=== PATIENT | female | born 1975 | race Caucasian/White ===

== ENCOUNTER 2025-05-19 18:38 | Emergency (ER) | payer MEDICAID, SELFPAY ==
[2025-05-19 18:41] VITALS: BMI 31.2
[2025-05-19 19:34] VITALS: BP 109/77; PULSE 101; RESP 16; TEMP 37.1; O2SAT 97
--- NOTE | 2025-05-19 20:01 | EDNOTE_ITS ---
ED Weakness RME/HPI General Chief complaint: General Adult/Misc Complain Stated complaint: I THINK I'M DEHYDRATED, PAIN TO EXTREMITIES Time Seen by Provider: 05/19/25 20:04 Arrival date/time: 05/19/25 18:38 RME / HPI RME / HPI Narrative: See [facility] for Dr. Henderson's HPI documentation. Related Data Previous Rx's ?Medication ?Instructions ?Recorded ibuprofen 800 mg tablet 800 mg PO TID PRN pain #30 t abs 06/24/22 Allergies Allergy/AdvReac Type Severity Reaction Status Date / Time cephalexin Allergy Severe SOB/RASH Verified 07/17/18 18:17 sumatriptan Allergy Severe DIFFICULTY Verified 07/17/18 18:17 BREATHING adhesive tape Allergy Unknown Hives Verified 06/24/22 17:55 Review of Systems Review of Systems Systems Reviewed: All systems reviewed, normal except as documented Past Medical History Past Medical History CARDIAC: Positive Hypercholesterolemia and Hypertension; Negative Cardiac Disorders or Congestive Heart Failure RESPIRATORY: Positive Asthma; Negative Chronic Obstructive Pulmonary Disease (COPD) GENITOURINARY: Negative Renal Disease ENDOCRINE: Positive Diabetes Mellitus Type 2; Negative Diabetes Mellitus Type 1 HEMATOLOGIC: Negative Sickle Cell Disease OTHER HISTORY: Positive Blood Transfusions Surgical History SURGICAL: Positive Tonsillectomy, Mastectomy (left), Hysterectomy and Section Social History SMOKING STATUS: Current every day smoker ED Exam Narrative Physical exam: See [facility] for Dr. Henderson's physical exam documentation. Course Quality Measures none Orders Category Date Time Status Saline [Insert IV] NOW Care 05/19/25 20:05 Completed BMP [Basic Metabolic Panel] Stat Lab 05/19/25 20:25 Completed CBC Stat Lab 05/19/25 20:25 Completed Magnesium Stat Lab 05/19/25 20:25 Completed TSH [Thyroid Stimulating Hormone] Stat Lab 05/19/25 20:25 Completed HYDROmorphone INJ [Dilaudid Inj] Med 05/19/25 20:05 Discontinued 2 mg IVP X1 ONE HYDROmorphone INJ [Dilaudid Inj] Med 05/19/25 21:48 Discontinued 2 mg IVP X1 ONE Ketorolac Inj [Toradol Inj] Med 05/19/25 21:48 Discontinued 30 mg IVP X1 ONE MethylPREDNISolone.* [SoluMEDROL Inj] Med 05/19/25 20:05 Discontinued 125 mg IVP X1 ONE Ondansetron Inj [Zofran Inj] Med 05/19/25 20:05 Discontinued 4 mg IVP X1 ONE Sodium Chloride 0.9% 1000 ml [Ns] 1,000 ml Med 05/19/25 20:05 Discontinued IV 999 mls/hr Vital Signs Vital signs: Vital Signs Temperature 98.7 F 05/19/25 19:34 Pulse Rate 101 H 05/19/25 19:34 Respiratory Rate 16 05/19/25 19:34 Blood Pressure 109/77 05/19/25 19:34 Pulse Oximetry (%) 97 05/19/25 19:34 Oxygen Delivery Method Room Air 05/19/25 19:34 Weakness MDM Narrative MDM Narrative:: This section includes all my notes and documentations, including HPI, PE, and ED course. 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 Reports having occasional flareups of severe pain since the diagnosis. No fever or chills. No other complaints. ROS: All negative except as documented in HPI. Physical Exam: General:? Alert and oriented.? No acute distress.? Eyes:? Conjunctivae and lids clear.? EOMI.? PERRL. ENT:? No signs of head trauma. Neck:? Supple.? No tenderness. Heart:? RRR. Lungs:? No respiratory distress.? Good air movement.? No rhonchi, wheezing, rales.? Chest:? No tenderness. Abdomen:? Soft and nontender.? Normal bowel sounds.? No distension.? No rebound or guarding.? Back:? No tenderness.? Skin:? Warm and dry.? Neuro:? Alert and oriented X 3.? Cranial Nerves II-XII grossly intact.? No peripheral motor deficits. Musculoskeletal:? All major joints and bones are not tender with no limited ROM. I reviewed all diagnostic test results. Blood tests are unremarkable. At this point, diagnoses include: GBS pain flareup Treatment here included: Solumedrol 125 mg IV Zofran 4 mg IV IV fluid Dilaudid 2 mg IV X 2 Toradol 30 mg IV Significant improvement noted. Recommended supportive care. Based on my best medical judgment, made decision no further evaluation or treatment indicated at this time. Patient understands and agrees to the discharge instructions customized and printed, see below. Discharge Instructions from Dr. Henderson printed for you: 1. We are sorry for your recent diagnosis of 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 (GBS). 2. Continue current care with your private doctors. 3. Seek immediate medical care with worsening or with any concerns. Ming Henderson MD Patient data External records reviewed:: [facility] previous records (Per chart review, patient was seen here on 06/24/22 for bronchitis.) Clinical information provided by:: patient Social determinants that could affect healthcare access:: none Patient has the following chronic illnesses:: Guillan-Palmyra, DM, HTN, HLD How is presenting disease/condition affected by chronic disease/condition?: caused by Evaluation data The following diagnostics were reviewed and interpreted by me:: lab results Lab and/or radiology exams considered but not ordered:: none Interpretation Summary: I reviewed all diagnostic test results. Blood tests are unremarkable. Medications / Prescriptions Medications or Prescriptions considered but not ordered:: none Medication administrations:: Medication Administration History Discontinued Medications Hydromorphone HCl (Hydromorphone Inj 2 Mg/Ml Vial) 2 mg IVP X1 ONE Stop: 05/19/25 20:06 Last Admin: 05/19/25 21:20 Dose: 2 mg Documented By: BD Hydromorphone HCl (Hydromorphone Inj 2 Mg/Ml Vial) 2 mg IVP X1 ONE Stop: 05/19/25 21:49 Last Admin: 05/19/25 22:10 Dose: 2 mg Documented By: BD Sodium Chloride (Ns) 1,000 mls @ 999 mls/hr IV .Q1H1M ONE Stop: 05/19/25 21:05 Last Infusion: 05/19/25 21:56 Dose: Infused Documented By: Admin: 05/19/25 21:21 Dose: 999 mls/hr Documented By: BD Ketorolac Tromethamine (Ketorolac Inj 30 Mg/Ml Vial) 30 mg IVP X1 ONE Stop: 05/19/25 21:49 Last Admin: 05/19/25 22:09 Dose: 30 mg Documented By: BD Methylprednisolone Sodium Succinate (Methylprednisolone Sod Succ 62.5 Mg/Ml 2ml Vial) 125 mg IVP X1 ONE Stop: 05/19/25 20:06 Last Admin: 05/19/25 21:21 Dose: 125 mg Documented By: BD Ondansetron HCl (Ondansetron Inj 2 Mg/Ml Inj 2 Ml) 4 mg IVP X1 ONE; Protocol Stop: 05/19/25 20:06 Last Admin: 05/19/25 21:21 Dose: 4 mg Documented By: BD Treatment here included: Solumedrol 125 mg IV Zofran 4 mg IV IV fluid Dilaudid 2 mg IV X 2 Toradol 30 mg IV Consultations Consultation(s) initiated? (list below): No Diagnosis Weakness Differential Diagnosis: anemia, hypoglycemia, dehydration and other (GBS exacerbation) Most likely diagnosis given after review of the tests above:: GBS exacerbation Admission Indicated Admission indicated?: not indicated Explain why admission is indicated or not indicated:: With significant improvement and no condition needing emergent intervention, there was no indication for admission. Admission Request Was there a request for admission?: No Disposition Plan Disposition Plan: Discharge Discharge Attestation Discharge Attestation: The patient and all family members were given an opportunity to ask questions and understood the discharge instructions. Discharge instructions specifically effects, indications for sooner follow up or return to the emergency department, and the expected course of current diagnosis. Patient condition: Stable Discharge Plan Plan Patient Disposition: HOME (Self Care) Prescriptions/Referrals Prescriptions/Med Rec: No Action ibuprofen 800 mg tablet 800 mg PO TID PRN (Reason: pain) Qty: 30 0RF Referrals: Jessica Ramirez DO [Primary Care Provider] - In 1 week Problem List Clinical Impression: Pain Patient/Caregiver Discharge Instructions Discharge Activity: activity as tolerated Education Materials: ED Pain, Acute, Uncertain Cause Additional Instructions: Discharge Instructions from Dr. Henderson printed for you: 1. We are sorry for your recent diagnosis of 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 (GBS). 2. Continue current care with your private doctors. 3. Seek immediate medical care with worsening or with any concerns. Print Language: Haitian Stand Alone Forms: Priscilla Award Info., Patient Portal Info Letter
--- NOTE | 2025-05-19 20:42 | PC.NURSE ---
NO ANSWER AT ER LOBBY OR OUTSIDE ER.
[2025-05-19 20:48] LABS: Basophils # (Auto) 0.1 Thou/mm3 (0.0-0.2); Basophils % (Auto) 0 % (0-2.5); Eosinophils # (Auto) 0.2 Thou/mm3 (0.0-0.5); Eosinophils % (Auto) 2 % (0-10); Hematocrit 38.7 % (36.0-46.0); Hemoglobin 12.1 g/dL (12.0-16.0); Immature Granulocytes Auto 0.03 Thou/mm3 (0.00-0.00); Lymphocytes # (Auto) 4.6 Thou/mm3 (1.0-4.8); Lymphocytes % (Auto) 39 % (10-50); Mean Corpuscular HGB Conc 31.3 g/dl (31.0-37.0); Mean Corpuscular Hemoglobin 30.0 pg (25.0-35.0); Mean Corpuscular Volume 96 fL (80-100); Monocytes # (Auto) 0.6 Thou/mm3 (0.0-0.8); Monocytes % (Auto) 5 % (0-12); Neutrophils # (Auto) 6.3 Thou/mm3 (1.8-7.7); Neutrophils % (Auto) 53 % (37-80); Nucleated Red Blood Cell # 0.00 Thou/mm3 (0.00-0.00); Nucleated Red Blood Cell % 0 /100 WBC (0); Platelet Count 366 Thou/mm3 (140-440); RDW Standard Deviation 53.4 fL (36.4-46.3); Red Blood Count 4.04 Miln/mm3 (4.00-5.20); White Blood Count 11.9 Thou/mm3 (3.6-11.0)
[2025-05-19 21:11] LABS: Anion Gap 6 (7-16); BUN/Creatinine Ratio 10 Ratio (12-20); Blood Urea Nitrogen 6 mg/dL (9-23); Calcium 8.6 mg/dL (8.3-10.6); Carbon Dioxide 24.7 mMol/L (20.0-31.0); Chloride 110 mMol/L (98-107); Creatinine (Component) 0.6 mg/dL (0.6-1.3); Estimated Creatinine Clearance 119.2 mL/min (>60); Glucose 79 mg/dL (74-106); Magnesium 1.8 mg/dL (1.6-2.6); Osmolality,Calculated 277 (275-295); Potassium 3.6 mMol/L (3.4-5.1); Sodium 141 mMol/L (136-145); Thyroid Stimulating Hormone 0.82 uIU/mL (0.55-4.78); eGFR > 60 See Note
[2025-05-19 21:20] VITALS: BP 125/88; PULSE 82; RESP 16; TEMP 36.9; O2SAT 96
[2025-05-19] MEDS: HYDROmorphone INJ 2 MG/ML VIAL IVP ×2 (21:20→22:10)
[2025-05-19] MEDS: SODIUM CHLORIDE 0.9% 1000 ML 1,000 ML 999 ML IV (21:21)
[2025-05-19] MEDS: MethylPREDNISolone SOD SUCC 62.5 MG/ML 2ML VIAL 125 MG IVP (21:21)
[2025-05-19] MEDS: ONDANSETRON INJ 2 MG/ML INJ 2 ML 4 MG IVP (21:21)
[2025-05-19 22:00] VITALS: BP 126/84; PULSE 85; RESP 16; TEMP 36.9; O2SAT 96
[2025-05-19] MEDS: KETOROLAC INJ 30 MG/ML VIAL IVP (22:09)
== END 2025-05-19 22:26 | disposition home or self-care (01) ==
PROVIDERS: Emergency Provider Emergency Medicine; PCP Family Medicine
DX: M79.602 Pain in left arm (principal); M79.601 Pain in right arm; M79.605 Pain in left leg; M79.604 Pain in right leg; G61.0 Guillain-Barre syndrome; I10 Essential (primary) hypertension; E11.9 Type 2 diabetes mellitus without complications; E78.5 Hyperlipidemia, unspecified
CPT/HCPCS: 36415; 80048; 83735; 84443; 85025; 96361; 96374; 96375; 96376; 99283; J1171; J1885; J2405; J2919; J7030

== ENCOUNTER 2025-05-23 14:17 | Emergency (ER) | payer MEDICAID, SELFPAY ==
[2025-05-23 14:41] VITALS: BP 116/78; PULSE 95; RESP 20; TEMP 36.7; O2SAT 98; BMI 31.9
--- NOTE | 2025-05-23 14:44 | PD.EDRME ---
Rapid Medical Screening Exam RME Arrival date/time: 05/23/25 14:17 49-year-old female with history of Guillain-Barrow? presents to the emergency room with a chief complaint of lower extremity numbness as well as stabbing to her upper extremities and chest x 2 days I have greeted and performed a focused initial assessment of this patient. A comprehensive ED assessment and evaluation of the patient, analysis of all test results, and completion of the medical decision making process will be conducted by additional ED providers. Chief Complaint: Hand/Wrist Problems Time Seen by Provider: 05/23/25 14:37 Vital signs reviewed by provider: Yes
--- NOTE | 2025-05-23 14:46 | EKG_ITS ---
[facility] Test Date: 2025-05-23 Pat Name: MISBAH WHYTE Department: Room: - Gender: Female [employer] Installer: : 1975 Requested By: Reggie Issa Order Number: [id number] Reading MD: Reggie Issa Measurements Intervals [place] Rate: 89 P: 61 MS: 136 QRS: -16 QRSD: 121 T: 13 QT: 405 QTc: 493 Interpretive Statements SINUS RHYTHM WITH OCCASIONAL VENTRICULAR PREMATURE COMPLEXES RIGHT BUNDLE BRANCH BLOCK [120+ ms QRS DURATION, UPRIGHT V1, 40+ ms S IN I/aVL/V4/V5/V6] Compared to ECG 06/24/2022 18:48:39 Ventricular premature complex(es) now present /store/S0/[id number]/ecg/[id number].pdf
[2025-05-23 15:23] LABS: Basophils # (Auto) 0.1 Thou/mm3 (0.0-0.2); Basophils % (Auto) 0 % (0-2.5); Eosinophils # (Auto) 0.2 Thou/mm3 (0.0-0.5); Eosinophils % (Auto) 1 % (0-10); Hematocrit 40.1 % (36.0-46.0); Hemoglobin 13.3 g/dL (12.0-16.0); Immature Granulocytes Auto 0.06 Thou/mm3 (0.00-0.00); Lymphocytes # (Auto) 5.2 Thou/mm3 (1.0-4.8); Lymphocytes % (Auto) 36 % (10-50); Mean Corpuscular HGB Conc 33.2 g/dl (31.0-37.0); Mean Corpuscular Hemoglobin 30.8 pg (25.0-35.0); Mean Corpuscular Volume 93 fL (80-100); Monocytes # (Auto) 0.7 Thou/mm3 (0.0-0.8); Monocytes % (Auto) 5 % (0-12); Neutrophils # (Auto) 8.2 Thou/mm3 (1.8-7.7); Neutrophils % (Auto) 57 % (37-80); Nucleated Red Blood Cell # 0.00 Thou/mm3 (0.00-0.00); Nucleated Red Blood Cell % 0 /100 WBC (0); Platelet Count 401 Thou/mm3 (140-440); RDW Standard Deviation 53.2 fL (36.4-46.3); Red Blood Count 4.32 Miln/mm3 (4.00-5.20); White Blood Count 14.4 Thou/mm3 (3.6-11.0)
[2025-05-23 15:28] LABS: Collection Type, Urine Clean Catch
[2025-05-23 15:40] LABS: B-Type Natriuretic Peptide 86 pg/mL (0-100)
[2025-05-23 15:43] LABS: Alanine Aminotransferase < 7 U/L (10-49); Albumin, Serum 3.7 gm/dL (3.5-5.0); Albumin/Globulin Ratio 1.1 (1.2-2.2); Alkaline Phosphatase 139 U/L (46-116); Anion Gap 8 (7-16); Aspartate Amino Transferase 13 U/L (0-34); BUN/Creatinine Ratio 10 Ratio (12-20); Bilirubin,Total 0.2 mg/dL (0.3-1.2); Blood Urea Nitrogen 7 mg/dL (9-23); Calcium 9.0 mg/dL (8.3-10.6); Calcium (Corrected) 9.2 mg/dL (8.5-10.1); Carbon Dioxide 22.6 mMol/L (20.0-31.0); Chloride 108 mMol/L (98-107); Creatinine (Component) 0.7 mg/dL (0.6-1.3); Estimated Creatinine Clearance 103.3 mL/min (>60); Globulin 3.5 gm/dL (2.3-3.5); Glucose 129 mg/dL (74-106); Magnesium 1.8 mg/dL (1.6-2.6); Osmolality,Calculated 277 (275-295); Potassium 3.3 mMol/L (3.4-5.1); Sodium 139 mMol/L (136-145); Total Protein 7.2 gm/dL (5.7-8.2); Troponin I < 0.002 ng/mL (0.0-0.045); eGFR > 60 See Note
[2025-05-23 15:45] LABS: INR 1.1 (0.9-1.3); Partial Thromboplastin Time 29.6 Seconds (22.0-36.0); Prothrombin Time 11.9 Seconds (9.0-12.2)
[2025-05-23 15:46] LABS: Amphetamine/Methamp Scrn,U Negative (Negative); Barbiturate Screen,Urine Negative (Negative); Benzodiazepines Screen,Urine Negative (Negative); Benzoylecgonine Screen, Ur Negative (Negative); Fentanyl Screen,Urine Negative (Negative); Opiate Screen,Urine Positive (Negative); THC Screen,Urine Negative (Negative)
[2025-05-23 16:08] LABS: Bilirubin,Urine Negative (Negative); Blood,Urine Trace (Negative); Clarity,Urine Clear (Clear/Hazy); Color,Urine Lt-Yellow (Lt Yel-Yel); Culture Indicated,Urine Not Indicated; Glucose, Urine Negative (Negative); Ketones,Urine Negative (Negative); Leukocyte Esterase,Urine Negative (Negative); Nitrite,Urine Negative (Negative); PH,Urine 6.5 (5.0-7.0); Protein,Urine Negative (Neg - Trace); RBC,Urine < 1 /hpf (0-3); Specific Gravity,Urine 1.009 (1.001-1.035); Squamous Epithelial Cell,Urine 4 /hpf (0-5); Urobilinogen,Urine Negative mg/dL (0.0-1.0); WBC,Urine 1 /hpf (0-5)
--- NOTE | 2025-05-23 17:07 | EDNOTE_ITS ---
<Statement entered by Gertrudis Solano MD - 05/24/25 06:48> As co-signing physician, I was present and available for consult prn. I concur with the plan and care as documented by the midlevel provider. ED General RME/HPI General Chief complaint: Hand/Wrist Problems Stated complaint: PAIN IN HANDS/FEET D/T ROMO BARRE Time Seen by Provider: 05/23/25 14:37 Arrival date/time: 05/23/25 14:17 CC: Bilateral hand and foot pain HPI onset 24 hours ago. The patient states she has Guillain-Barrow? , was diagnosed in February at [facility] and is currently on Lyrica 103 times a day and [place] tens 3 times a day for the pain. Patient states she has an appointment with provider coming up on 28 May. Patient states her pain medication is not enough . Patient is requesting IV pain medications. Patient has no lower extremity weakness but has upper extremity weakness. She is awake alert oriented nontoxic-appearing not in any acute distress. RME / HPI RME / HPI narrative: 05/23/25 14:17 49-year-old female with history of Guillain-Barrow? presents to the emergency room with a chief complaint of lower extremity numbness as well as stabbing to her upper extremities and chest x 2 days I have greeted and performed a focused initial assessment of this patient. A comprehensive ED assessment and evaluation of the patient, analysis of all test results, and completion of the medical decision making process will be conducted by additional ED providers. Related Data Previous Rx's ?Medication ?Instructions ?Recorded ibuprofen 800 mg tablet 800 mg PO TID PRN pain #30 t abs 06/24/22 Allergies Allergy/AdvReac Type Severity Reaction Status Date / Time cephalexin Allergy Severe SOB/RASH Verified 05/23/25 14:20 sumatriptan Allergy Severe DIFFICULTY Verified 05/23/25 14:20 BREATHING adhesive tape Allergy Unknown Hives Verified 05/23/25 14:20 Review of Systems Review of Systems Narrative Review of Systems: GEN: No fever, no chills, no weight loss EYES: No discharge, no visual changes, no pain HEENT: No ear pain, no congestion, no sore throat PULM: No shortness of breath, no cough, no congestion CV: No chest pain, no dyspnea on exertion, no palpitations GI: No nausea, no vomiting, no diarrhea, no pain, no constipation : No frequency, no urgency, no dysuria MUSC/SKEL: No joint pain, no back pain, Hand and foot pain SKIN: No rash PSYCH: No hallucinations, no depression HEME/LYMPH: No easy bleeding or bruising tendencies NEURO: No weakness, no headache Past Medical History Past Medical History NEUROLOGIC: Positive Migraine CARDIAC: Positive Hypercholesterolemia and Hypertension; Negative Cardiac Disorders or Congestive Heart Failure RESPIRATORY: Positive Asthma and Pneumonia; Negative Chronic Obstructive Pulmonary Disease (COPD) GASTROINTESTINAL: Positive Gall Bladder Disease GENITOURINARY: Negative Renal Disease REPRODUCTIVE: Positive Previous Pregnancies MUSCULOSKELETAL: Positive Arthritis ENT: Positive Deafness (bilateral hearing aids) ENDOCRINE: Positive Diabetes Mellitus Type 2; Negative Diabetes Mellitus Type 1 HEMATOLOGIC: Negative Sickle Cell Disease PSYCHO/SOCIAL: Positive Depression and Anxiety OTHER HISTORY: Positive Blood Transfusions Surgical History SURGICAL: Positive Tonsillectomy, Mastectomy (left), Hysterectomy and Section Social History SMOKING STATUS: Current every day smoker ED Exam Narrative Physical exam: [General: Obese, in moderate discomfort but not in any acute distress Head normocephalic HEENT: Eyes pupils are PERRLA EOMs are intact mouth pink moist membranes uvula is midline swallow symmetrical phonation is normal. All other subsystems within acceptable limits Neck is supple nontender Chest equal chest rise nontender to palpation Respiratory: Clear to auscultation no wheezes crackles or rubs CV: Rate rhythm is regular no murmurs rubs or clicks Abdomen is soft nontender no masses positive bowel sounds all 4 quadrants Back: No CVA tenderness no spinous process tenderness from cervical spine thoracic and lumbar spine Skin: Intact no petechiae rash induration ulceration or crepitus Extremities: Hands: 2/5 strength in hands bilaterally. Decreased range of motion of the feet secondary to pain. Hands and feet are cool to touch but not cold cap refill less than 2 seconds. Neuro: Awake alert oriented x3 Glascow coma 15 no focal deficits] Course Course Course Narrative: I suspect this is mostly pain medication driven however patient's chart reviewed on May 08 patient was given 90 pills of 05/19/2025 narcotics as well as 90 pills of the Lyrica 100 mg. Patient adamant about getting as much pain medication as possible was seen here 2 days ago for the same complaint informed she was given Dilaudid Toradol and s teroids. I informed her that I can add Toradol to what already been giving her but that she needs to continue on her regular pain medication and follow-up with her primary care doctor. Quality Measures none Orders Category Date Time Status EKG (ED ONLY) *Do not use* NOW Care 05/23/25 14:46 Completed Saline [Insert IV] NOW Care 05/23/25 17:10 Active EKG (ED Only) Stat Exams 05/23/25 14:46 Draft B-Type Natriuretic Peptide Stat Lab 05/23/25 15:06 Completed CBC Stat Lab 05/23/25 15:06 Completed Comprehensive Metabolic Panel Stat Lab 05/23/25 15:06 Completed Drug Screen,Urine Stat Lab 05/23/25 15:23 Completed Magnesium Stat Lab 05/23/25 15:06 Completed Partial Thromboplastin Time Stat Lab 05/23/25 15:06 Completed Prothrombin Time with INR Stat Lab 05/23/25 15:06 Completed Troponin I Stat Lab 05/23/25 15:06 Completed Urinalysis, C/S if Indicated Stat Lab 05/23/25 15:23 Completed Morphine* Inj Med 05/23/25 17:11 Discontinued 5 mg IVP X1 ONE Ondansetron Inj [Zofran Inj] Med 05/23/25 17:11 Discontinued 4 mg IVP X1 ONE Vital Signs Vital signs: Vital Signs Temperature 98.0 F 05/23/25 14:41 Pulse Rate 95 05/23/25 14:41 Respiratory Rate 20 05/23/25 14:41 Blood Pressure 116/78 05/23/25 14:41 Pulse Oximetry (%) 98 05/23/25 14:41 Oxygen Delivery Method Room Air 05/23/25 14:41 Discharge Plan Plan Patient Disposition: HOME (Self Care) Patient condition on transfer: Stable Prescriptions/Referrals Prescriptions/Med Rec: No Action ibuprofen 800 mg tablet 800 mg PO TID PRN (Reason: pain) Qty: 30 0RF Referrals: Jessica Ramirez DO [Primary Care Provider] - In 1 week Problem List Clinical Impression: Chronic pain Patient/Caregiver Discharge Instructions Other Activity Instructions:: Follow-up with your primary care doctor, consider pain management. Education Materials: ED Chronic Pain Print Language: Wolof Stand Alone Forms: Priscilla Award Info., Work/School Release, Patient Portal Info Letter PA/STATIONARY BOILER FIREMAN Supervising Physician PA/STATIONARY BOILER FIREMAN Supervising Physician: Andres Perez ENP [facility] Clinical Information Provided by: patient Medical Records reviewed [facility] Meds/Rx considered, not ordered None Labs/Rad/Tests considered, not ordered None Chronic Illness/Social Conditions Explain: Recent diagnosis of Guillain-Barrow? February 2025 EKG Interpretation EKG #1: EKG Interpretation: EKG performed at 1451 shows a ventricular rate of 89 GA interval 136 QRS of 121 QTc of 451 the sinus rhythm with right bundle branch block. Labs Labs: interpreted by ga Lab(s) Interpretation(s): CBC shows leukocytosis of 14.4 no anemia thrombocytopenia Coags within acceptable limits CMP shows potassium 3.3 chloride of 108 BUN is 7 glucose of 129. No transaminitis or T. bili elevation Troponin is negative BNP is within acceptable limits Urine is negative for UTI. U tox is positive for opioids. Medication Administration(s) Medication Administration History Discontinued Medications Morphine Sulfate (Morphine Sulf Inj 4 Mg/Ml Vial) 5 mg IVP X1 ONE Stop: 05/23/25 17:12 Last Admin: 05/23/25 17:36 Dose: 5 mg Documented By: BRENNAN Ondansetron HCl (Ondansetron Inj 2 Mg/Ml Inj 2 Ml) 4 mg IVP X1 ONE; Protocol Stop: 05/23/25 17:12 Last Admin: 05/23/25 17:36 Dose: 4 mg Documented By: BRENNAN
[2025-05-23 17:33] VITALS: BP 160/73; PULSE 65; RESP 18; TEMP 36.7; O2SAT 97
[2025-05-23] MEDS: ONDANSETRON INJ 2 MG/ML INJ 2 ML 4 MG IVP (17:36)
[2025-05-23] MEDS: MORPHINE SULF INJ 4 MG/ML VIAL 5 MG IVP (17:36)
[2025-05-23 17:41] LABS: Atypical Lymphs 1+; Eosinophils (Manual) 1 % (0-4); Lymphocytes (Manual) 37 % (20-44); Monocytes (Manual) 5 % (2-9); Neutrophils (Manual) 57 % (50-70)
[2025-05-23] MEDS: KETOROLAC INJ 30 MG/ML VIAL IVP (18:04)
== END 2025-05-23 18:21 | disposition home or self-care (01) ==
PROVIDERS: Nurse Practitioner Family; Emergency Provider Emergency Medicine; PCP Family Medicine
DX: M79.642 Pain in left hand (principal); M79.641 Pain in right hand; M79.671 Pain in right foot; M79.672 Pain in left foot; G89.29 Other chronic pain; I49.3 Ventricular premature depolarization; I45.10 Unspecified right bundle-branch block; D72.829 Elevated white blood cell count, unspecified
CPT/HCPCS: 36415; 80053; 80307; 81001; 83735; 83880; 84484; 85025; 85610; 85730; 93005; 96374; 96375; 99284; J1885; J2270; J2405

== ENCOUNTER 2025-06-18 18:19 | Emergency (ER) | payer MEDICAID, SELFPAY ==
[2025-06-18 18:35] VITALS: BP 119/78; PULSE 84; RESP 19; TEMP 36.8; O2SAT 98
[2025-06-18 18:58] VITALS: BMI 37.4
--- NOTE | 2025-06-18 19:09 | XR_ITS ---
EXAMINATION: Lumbar spine 3 views TECHNIQUE: 1. AP lateral: Lateral lumbar spine lower region 3 views Date and time: June 18, 2025, 1933 hours INDICATIONS: Injury to lower back today, lower back pain. FINDINGS: Prominent osteopenia No lumbar fracture Transitional S1 vertebral body Mild disc narrowing L4-L5 IMPRESSION: No lumbar fracture
--- NOTE | 2025-06-18 19:09 | XR_ITS ---
EXAMINATION: Thoracic spine 3 views TECHNIQUE: AP and lateral coned lateral upper dorsal spine 3 views Date and time: June 18, 2025, 1932 hours INDICATIONS: Patient fell today with injury to the back, mid back pain. FINDINGS: No acute thoracic fracture Moderate diffuse thoracic disc narrowing Moderate degenerative disc disease C5-C6 C6-C7 IMPRESSION: No acute thoracic fracture
--- NOTE | 2025-06-18 19:09 | XR_ITS ---
Examination: Left hip AP, lateral, AP pelvis 3 views Technique: Hip AP lateral, AP pelvis, 3 views Exam date and time: June 18, 2025, 0734 hours INDICATIONS: Injury to the hip today, hip pain FINDINGS: No hip fracture or dislocation Right hip bones of the pelvis intact IMPRESSION: No acute hip or pelvic fracture.
[2025-06-18] MEDS: MORPHINE SULF INJ 4 MG/ML VIAL IM (22:34)
[2025-06-18] MEDS: ONDANSETRON INJ 2 MG/ML INJ 2 ML 4 MG IM (22:34)
--- NOTE | 2025-06-19 14:51 | EDNOTE_ITS ---
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 and asking for pain medication patient is currently on Troy for his chronic pain patient denies any head neck chest or abdominal injury no loss of consciousness patient is not taking blood thinner Limitations: no limitations Related Data Previous Rx's ?Medication ?Instructions ?Recorded ibuprofen 800 mg tablet 800 mg PO TID PRN pain #30 t abs 06/24/22 ibuprofen 800 mg tablet 800 mg PO Q8H PRN pain #20 t abs 06/18/25 Allergies Allergy/AdvReac Type Severity Reaction Status Date / Time cephalexin Allergy Severe SOB/RASH Verified 06/18/25 18:22 sumatriptan Allergy Severe DIFFICULTY Verified 06/18/25 18:22 BREATHING adhesive tape Allergy Unknown Hives Verified 06/18/25 18:22 Review of Systems Review of Systems Systems Reviewed: All systems reviewed, normal except as documented Constitutional Constitutional: Reports system reviewed and no additional complaints, except as documented and Reports as per HPI Cardiovascular Cardiovascular: Reports system reviewed and no additional complaints, except as documented and Reports as per HPI Respiratory Respiratory: Reports system reviewed and no additional complaints, except as documented and Reports as per HPI Gastrointestinal Gastrointestinal: Reports system reviewed and no additional complaints, except as documented and Reports as per HPI Musculoskeletal Musculoskeletal: Reports system reviewed and no additional complaints, except as documented and Reports as per HPI Neurologic Neurologic: Reports system reviewed and no additional complaints, except as documented and Reports as per HPI Past Medical History Past Medical History NEUROLOGIC: Positive Migraine CARDIAC: Positive Hypercholesterolemia and Hypertension; Negative Cardiac Disorders or Congestive Heart Failure RESPIRATORY: Positive Asthma and Pneumonia; Negative Chronic Obstructive Pulmonary Disease (COPD) GASTROINTESTINAL: Positive Gall Bladder Disease GENITOURINARY: Negative Renal Disease REPRODUCTIVE: Positive Previous Pregnancies MUSCULOSKELETAL: Positive Arthritis ENT: Positive Deafness (bilateral hearing aids) ENDOCRINE: Positive Diabetes Mellitus Type 2; Negative Diabetes Mellitus Type 1 HEMATOLOGIC: Negative Sickle Cell Disease PSYCHO/SOCIAL: Positive Depression and Anxiety OTHER HISTORY: Positive Blood Transfusions Surgical History SURGICAL: Positive Tonsillectomy, Mastectomy (left), Hysterectomy and Section Social History SMOKING STATUS: Never smoker ED Exam General Limitations: Present no limitations General appearance: Present alert, in no apparent distress and other Head Head exam: Present atraumatic, normocephalic and normal inspection Eye Eye exam: Present normal appearance, PERRL and EOMI ENT ENT exam: Present normal exam, normal oropharynx and mucous membranes moist Neck Neck exam: Present normal inspection, full ROM and trachea midline; Absent tenderness, meningismus, lymphadenopathy or thyromegaly Chest Chest inspection: Present normal inspection and symmetric chest wall rise; Absent tenderness Respiratory Respiratory exam: Present normal lung sounds bilaterally; Absent respiratory distress, wheezes, stridor, accessory muscle use or prolonged expiratory phase Cardiovascular Cardiovascular exam: Present regular rate, normal rhythm and normal heart sounds; Absent bradycardia, tachycardia, irregular rhythm, systolic murmur, diastolic murmur or clicks Abdominal Exam Abdominal exam: Present soft and normal bowel sounds; Absent distention, tenderness, guarding, rebound, rigidity, diminished bowel sounds, hyperactive bowel sounds, hypoactive bowel sounds or organomegaly Extremities Exam Extremities exam: Present normal inspection and full ROM Expanded Lower Extremity Exam Hip/Pelvis exam: Present tenderness, swelling, pelvis stable and other (ROM intact neurovascular); Absent abrasion, laceration, ecchymosis, deformity, crepitus, dislocation, erythema, external rotation, internal rotation or shortening Upper leg exam: Present normal inspection and full ROM; Absent tenderness or swelling Back Exam Back exam: Present normal inspection, full ROM, tenderness (Tenderness mild thoracic area and lumbar area no crepitation no deformity no paraspinal no paravertebral tenderness mild muscle spasm steady gait unable to assess due to pain on the left) and muscle spasm; Absent CVA tenderness (R), CVA tenderness (L), paraspinal tenderness, vertebral tenderness, sciatic notch tenderness (R), sciatic notch tenderness (L), straight leg raise (R) or straight leg raise (L) Neurological Exam Neurological exam: Present alert, oriented X3, CN II-XII intact and reflexes normal; Absent normal gait or motor sensory deficit Psychiatric Psychiatric exam: Present normal affect and normal mood Skin Skin exam: Present warm, dry, intact, normal color and other (Excellent skin turgor) Course Quality Measures none Orders Category Date Time Status XR hip LT w pelvis 2-3V Stat Exams 06/18/25 19:09 Completed XR lumbar spine 2-3V Stat Exams 06/18/25 19:09 Completed XR thoracic spine 3V Stat Exams 06/18/25 19:09 Completed Morphine* Inj Med 06/18/25 20:51 Discontinued 4 mg IM X1 ONE Ondansetron Inj [Zofran Inj] Med 06/18/25 21:58 Discontinued 4 mg IM X1 ONE Promethazine Inj [Phenergan Inj] 12.5 mg Med 06/18/25 20:51 Discontinued Sodium Chloride 0.9% [Ns] 50 ml IV Q6HR Vital Signs Vital signs: Vital Signs Temperature 98.3 F 06/18/25 18:35 Pulse Rate 84 06/18/25 18:35 Respiratory Rate 19 06/18/25 18:35 Blood Pressure 119/78 06/18/25 18:35 Pulse Oximetry (%) 98 06/18/25 18:35 Oxygen Delivery Method Room Air 06/18/25 18:35 Oxygen saturation is 98% on room air Fall MDM Narrative MDM Narrative:: This is a case of 49-year-old female with 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 and asking for pain medication patient is currently on [place] for his chronic pain patient denies any head neck chest or abdominal injury no loss of consciousness patient is not taking blood thinner physical examination patient is awake alert oriented not in distress nontoxic looking well-hydrated well-nourished vital signs stable BP stable not tachycardic not tachypneic afebrile and nonhypoxic neurological exam is normal awake alert oriented x 4 no focal deficit GCS 15/15 patient gait is unstable due to pain in the left hip motor and sensory reflex were all normal in all extremities negative Babinski memory intact no facial droop no slurring of speech CN II to XII is normal patient noted to have mild tenderness on the thoracic area and lumbar area no crepitation no deformity no paraspinal no paravertebral tenderness mild muscle spasm no cellulitis no swelling ROM is intact neurovascular is intact leg raise exam is negative patient noted to have mild to moderate tenderness in the left hip no crepitation no deformity no contusion no cellulitis ROM intact neurovascular and x-ray of the left hip thoracic and lumbar were all normal no fracture no dislocation patient was given morphine and Zofran per patient request for pain med patient examination on both hands and both foot is normal thus I did not ordered any imaging at this point patient is stable to be discharged he was advised to follow-up with 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 Patient verbalized no further complains explained diagnosis and answered patient question. Patient is comfortable with the proposed management plan including the need to follow up with his/her primary care physician and any specialist if applicable Discussed patient for any urgent condition or worsening sx, He/She needed to go to emergency room immediately or call 911. Patient acknowledge the responsibility to follow up as instructed and to monitor her/his symptoms. For any persistence of the symptoms for more than 3-5 days return precaution advised. Discussed the result of the test and was given printed discharge instruction Patient data External records reviewed:: [facility] previous records Clinical information provided by:: patient Social determinants that could affect healthcare access:: none (None) Patient has the following chronic illnesses:: None How is presenting disease/condition affected by chronic disease/condition?: no chronic disease Evaluation data The following diagnostics were reviewed and interpreted by me:: lab results (Reviewed) and radiology exam(s) Lab and/or radiology exams considered but not ordered:: Reviewed Interpretation Summary: Reviewed Medications / Prescriptions Medications or Prescriptions considered but not ordered:: Given Medication administrations:: Medication Administration History Discontinued Medications Promethazine HCl 12.5 mg/ (Sodium Chloride) 50.5 mls @ 2.5 mls/min IV Q6HR PRN; Protocol PRN Reason: NAUSEA OR VOMITING Stop: 07/18/25 20:50 Morphine Sulfate (Morphine Sulf Inj 4 Mg/Ml Vial) 4 mg IM X1 ONE Stop: 06/18/25 20:52 Last Admin: 06/18/25 22:34 Dose: 4 mg Documented By: ZHANG Ondansetron HCl (Ondansetron Inj 2 Mg/Ml Inj 2 Ml) 4 mg IM X1 ONE; Protocol Stop: 06/18/25 21:59 Last Admin: 06/18/25 22:34 Dose: 4 mg Documented By: ZHANG Given Consultations Consultation(s) initiated? (list below): No Diagnosis Fall Differential Diagnosis: other (Fall sprain strain contusion) Most likely diagnosis given after review of the tests above:: Hip strain lumbar sprain thoracic sprain Admission Indicated Admission indicated?: not indicated Explain why admission is indicated or not indicated:: Not indicated Admission Request Was there a request for admission?: No Admission Attestation Admission request attestation: Not indicated Disposition Plan Disposition Plan: Discharge Discharge Attestation Discharge Attestation: The patient and all family members were given an opportunity to ask questions and understood the discharge instructions. Discharge instructions specifically effects, indications for sooner follow up or return to the emergency department, and the expected course of current diagnosis. Patient condition: Stable Discharge Plan Plan Patient Disposition: HOME (Self Care) Patient condition on transfer: Stable Prescriptions/Referrals Prescriptions/Med Rec: New ibuprofen 800 mg tablet 800 mg PO Q8H PRN (Reason: pain) Qty: 20 0RF No Action ibuprofen 800 mg tablet 800 mg PO TID PRN (Reason: pain) Qty: 30 0RF Referrals: No Primary/Family,Physician [Primary Care Provider] - In 1 week Problem List Clinical Impression: Fall, Sprain of thoracic spine, Lumbar sprain, Hip sprain Patient/Caregiver Discharge Instructions Education Materials: Self-Care for Strains and Sprains, Preventing Falls Moving Safely ..., ED Back Sprain/Strain, ED Muscle Strain, Extremity Additional Instructions: Follow-up with your primary care physician in 2 days for reevaluation follow-up with your 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 DrMya For further evaluation and treatment continue your Troy as needed for pain which was prescribed by your doctor worsening symptoms or any emergent concerns such as numbness weakness tingling sensation incontinence to urine or stool return to the emergency room immediately or call 911 ice pack every 2 hours for 20 minutes for 24 hours then alternate with warm compress take Tylenol or Motrin as needed for pain Print Language: Spanish Stand Alone Forms: Priscilla Award Info., Patient Portal Info Letter PA/HEADER SET UP OPERATOR Supervising Physician PA/HEADER SET UP OPERATOR Supervising Physician: Dr. Henderson
== END 2025-06-18 22:41 | disposition home or self-care (01) ==
PROVIDERS: Emergency Provider Emergency Medicine
DX: S23.3XXA Sprain of ligaments of thoracic spine, initial encounter (principal); S33.5XXA Sprain of ligaments of lumbar spine, initial encounter; S73.102A Unspecified sprain of left hip, initial encounter; G61.0 Guillain-Barre syndrome; G89.29 Other chronic pain; W01.198A Fall on same level from slipping, tripping and stumbling with subsequent striking against other object, initial encounter
CPT/HCPCS: 72072; 72100; 73502; 96372; 99283; J2270; J2405

== ENCOUNTER 2025-06-28 20:52 | Emergency (ER) | payer MEDICAID, SELFPAY ==
[2025-06-28 20:53] VITALS: BMI 36.3
[2025-06-28 21:29] VITALS: BP 159/98; PULSE 86; RESP 18; TEMP 36.9; O2SAT 98
--- NOTE | 2025-06-28 21:35 | PD.EDEXREM ---
ED Extremity Problem RME/HPI General Chief complaint: Extremity Problem,Nontraumatic Stated complaint: PAIN TO HANDS, ARMS, AND FEET Time Seen by Provider: 06/28/25 21:30 Arrival date/time: 06/28/25 20:52 RME / HPI RME / HPI Narrative: See MDM for Dr. Henderson's HPI Documentation. Related Data Previous Rx's ?Medication ?Instructions ?Recorded ibuprofen 800 mg tablet 800 mg PO TID PRN pain #30 tabs 06/24/22 ibuprofen 800 mg tablet 800 mg PO Q8H PRN pain #20 tabs 06/18/25 Allergies Allergy/AdvReac Type Severity Reaction Status Date / Time cephalexin Allergy Severe SOB/RASH Verified 06/28/25 20:53 sumatriptan Allergy Severe DIFFICULTY Verified 06/28/25 20:53 BREATHING adhesive tape Allergy Unknown Hives Verified 06/28/25 20:53 Review of Systems Review of Systems Systems Reviewed: All systems reviewed, normal except as documented Past Medical History Past Medical History NEUROLOGIC: Positive Migraine CARDIAC: Positive Hypercholesterolemia and Hypertension RESPIRATORY: Positive Asthma and Pneumonia GASTROINTESTINAL: Positive Gall Bladder Disease REPRODUCTIVE: Positive Previous Pregnancies MUSCULOSKELETAL: Positive Arthritis ENT: Positive Deafness (bilateral hearing aids) ENDOCRINE: Positive Diabetes Mellitus Type 2 PSYCHO/SOCIAL: Positive Depression and Anxiety OTHER HISTORY: Positive Blood Transfusions Surgical History SURGICAL: Positive Tonsillectomy, Mastectomy (left), Hysterectomy and Section Social History SMOKING STATUS: Current every day smoker ED Exam Narrative Physical exam: See MDM for Dr. Henderson's Physical Exam Documentation. Course Quality Measures none Orders Category Date Time Status Saline [Insert IV] NOW Care 06/28/25 21:37 Completed BMP [Basic Metabolic Panel] Stat Lab 06/28/25 22:25 Completed CBC Stat Lab 06/28/25 22:25 Completed Magnesium Stat Lab 06/28/25 22:25 Completed TSH [Thyroid Stimulating Hormone] Stat Lab 06/28/25 22:25 Completed HYDROmorphone INJ [Dilaudid Inj] Med 06/28/25 21:37 Discontinued 1 mg IVP X1 ONE HYDROmorphone INJ [Dilaudid Inj] Med 06/28/25 23:14 Discontinued 1 mg IVP X1 ONE Ketorolac Inj [Toradol Inj] Med 06/28/25 21:37 Discontinued 30 mg IVP X1 ONE Ondansetron Inj [Zofran Inj] Med 06/28/25 21:37 Discontinued 4 mg IVP X1 ONE Prochlorperazine Inj [Compazine Inj] Med 06/28/25 22:40 Discontinued 10 mg IV X1 ONE Promethazine Inj [Phenergan Inj] 12.5 mg Med 06/28/25 21:38 Discontinued Sodium Chloride 0.9% [Ns] 50 ml IV X1 Sodium Chloride 0.9% 1000 ml [Ns] 1,000 ml Med 06/28/25 21:37 Discontinued IV 999 mls/hr Vital Signs Vital signs: Vital Signs Temperature 98.4 F 06/28/25 21:29 Pulse Rate 86 06/28/25 21:29 Respiratory Rate 18 06/28/25 21:29 Blood Pressure 159/98 H 06/28/25 21:29 Pulse Oximetry (%) 98 06/28/25 21:29 Oxygen Delivery Method Room Air 06/28/25 21:29 Extremity Problem MDM Narrative MDM Narrative:: This section includes all my notes and documentations, including HPI, PE, and ED course. Ming Henderson MD HPI: 49 y/o female with Hx of GBS presents with severe pain from numbness and tingling in the hands and feet and both upper and lower extremities. Requests IV Dilaudid/Toradol/Phenergan/Zofran which has helped her in the past ER visits. No other complaints. ROS: All negative except as documented in HPI. Physical Exam: General: Alert and oriented. No acute distress when remaining still. Eyes: Conjunctivae and lids clear. ENT: No nasal congestion. Neck: Supple. Heart: RRR. Lungs: No respiratory distress. Good air movement. No rhonchi, wheezing, rales. Abdomen: Soft and nontender. Legs: No clubbing, cyanosis, edema. Skin: Warm and dry. Neuro: Alert and oriented X 3. Cranial Nerves II-XII grossly intact. No peripheral motor deficits. I reviewed all diagnostic test results: Blood tests unremarkable At this point, diagnoses include: GBS (Guillain-[place] syndrome) Treatment here included: IVF Dilaudid 1 mg IV X 2 Toradol 30 mg IV Zofran 4 mg IV Compazine 10 mg IV She felt much better. Recommended continued outpatient care. Based on my best medical judgment, made decision no further evaluation or treatment indicated at this time. Patient understands and agrees to the discharge instructions customized and printed, see below. Discharge Instructions from Dr. Henderson printed for you: 1. Continue current care with your private doctors. 2. Unfortunately, we are not going to be able to give narcotics without acute condition(s) needing narcotics. 3. Seek immediate medical care with worsening or with any concerns. Ming Henderson MD Patient data External records reviewed:: [facility] previous records (Reviewed prior ED records from 06/19/25. Patient was seen for Fall.) Clinical information provided by:: patient Social determinants that could affect healthcare access:: none Patient has the following chronic illnesses:: Migraine, Hypercholesterolemia, Hypertension, Asthma, Gall Bladder Disease, Arthritis, Deafness, Diabetes Mellitus Type 2, Depression and Anxiety How is presenting disease/condition affected by chronic disease/condition?: exacerbated by Evaluation data The following diagnostics were reviewed and interpreted by me:: lab results Lab and/or radiology exams considered but not ordered:: None Interpretation Summary: I reviewed all diagnostic test results: Blood tests unremarkable Medications / Prescriptions Medications or Prescriptions considered but not ordered:: None Medication administrations:: Medication Administration History Discontinued Medications Hydromorphone HCl (Hydromorphone Inj 2 Mg/Ml Vial) 1 mg IVP X1 ONE Stop: 06/28/25 21:38 Last Admin: 06/28/25 22:32 Dose: 1 mg Documented By: DAVID Hydromorphone HCl (Hydromorphone Inj 2 Mg/Ml Vial) 1 mg IVP X1 ONE Stop: 06/28/25 23:15 Last Admin: 06/28/25 23:30 Dose: 1 mg Documented By: DAVID Sodium Chloride (Ns) 1,000 mls @ 999 mls/hr IV .Q1H1M ONE Stop: 06/28/25 22:37 Last Admin: 06/28/25 22:34 Dose: 999 mls/hr Documented By: DAVID Promethazine HCl 12.5 mg/ (Sodium Chloride) 50.5 mls @ 2.5 mls/min IV X1 ONE; Protocol Stop: 06/28/25 21:58 Last Admin: 06/28/25 23:27 Dose: Not Given Documented By: DAVID Non-Admin Reason: Discontinued Ketorolac Tromethamine (Ketorolac Inj 30 Mg/Ml Vial) 30 mg IVP X1 ONE Stop: 06/28/25 21:38 Last Admin: 06/28/25 22:29 Dose: 30 mg Documented By: DAVID Ondansetron HCl (Ondansetron Inj 2 Mg/Ml Inj 2 Ml) 4 mg IVP X1 ONE; Protocol Stop: 06/28/25 21:38 Last Admin: 06/28/25 22:34 Dose: 4 mg Documented By: DAVID Prochlorperazine Edisylate (Prochlorperazine Inj 5 Mg/Ml Vial 2 Ml) 10 mg IV X1 ONE; Protocol Stop: 06/28/25 22:41 Last Admin: 06/28/25 22:59 Dose: 10 mg Documented By: DAVID Treatment here included: IVF Dilaudid 1 mg IV X 2 Toradol 30 mg IV Zofran 4 mg IV Compazine 10 mg IV Consultations Consultation(s) initiated? (list below): No Diagnosis Extremity Problem Differential Diagnosis: other (GBS flareup) Most likely diagnosis given after review of the tests above:: GBS (Guillain-[place] syndrome) Admission Indicated Admission indicated?: not indicated Explain why admission is indicated or not indicated:: With significant improvement and no condition needing emergent intervention, there was no indication for admission. Admission Request Was there a request for admission?: No Disposition Plan Disposition Plan: Discharge Discharge Attestation Discharge Attestation: The patient and all family members were given an opportunity to ask questions and understood the discharge instructions. Discharge instructions specifically effects, indications for sooner follow up or return to the emergency department, and the expected course of current diagnosis. Patient condition: Stable Discharge Plan Plan Patient Disposition: HOME (Self Care) Prescriptions/Referrals Prescriptions/Med Rec: No Action ibuprofen 800 mg tablet 800 mg PO Q8H PRN (Reason: pain) Qty: 20 0RF ibuprofen 800 mg tablet 800 mg PO TID PRN (Reason: pain) Qty: 30 0RF Referrals: Jessica Ramirez DO [Primary Care Provider] - In 1 week Problem List Clinical Impression: GBS (Guillain-[place] syndrome) Patient/Caregiver Discharge Instructions Discharge Activity: activity as tolerated Education Materials: Guillain-Barrow??? Syndrome Additional Instructions: Discharge Instructions from Dr. Henderson printed for you: 1. Continue current care with your private doctors. 2. Unfortunately, we are not going to be able to give narcotics without acute condition(s) needing narcotics. 3. Seek immediate medical care with worsening or with any concerns. Print Language: Estonian Stand Alone Forms: Priscilla Award Info., Patient Portal Info Letter
[2025-06-28] MEDS: KETOROLAC INJ 30 MG/ML VIAL IVP (22:29)
[2025-06-28] MEDS: HYDROmorphone INJ 2 MG/ML VIAL 1 MG IVP ×2 (22:32→23:30)
[2025-06-28] MEDS: SODIUM CHLORIDE 0.9% 1000 ML 1,000 ML 999 ML IV (22:34)
[2025-06-28] MEDS: ONDANSETRON INJ 2 MG/ML INJ 2 ML 4 MG IVP (22:34)
[2025-06-28 22:38] LABS: Basophils # (Auto) 0.0 Thou/mm3 (0.0-0.2); Basophils % (Auto) 0 % (0-2.5); Eosinophils # (Auto) 0.2 Thou/mm3 (0.0-0.5); Eosinophils % (Auto) 2 % (0-10); Hematocrit 34.2 % (36.0-46.0); Hemoglobin 11.1 g/dL (12.0-16.0); Immature Granulocytes Auto 0.04 Thou/mm3 (0.00-0.00); Lymphocytes # (Auto) 4.4 Thou/mm3 (1.0-4.8); Lymphocytes % (Auto) 38 % (10-50); Mean Corpuscular HGB Conc 32.5 g/dl (31.0-37.0); Mean Corpuscular Hemoglobin 30.5 pg (25.0-35.0); Mean Corpuscular Volume 94 fL (80-100); Monocytes # (Auto) 0.7 Thou/mm3 (0.0-0.8); Monocytes % (Auto) 6 % (0-12); Neutrophils # (Auto) 6.2 Thou/mm3 (1.8-7.7); Neutrophils % (Auto) 54 % (37-80); Nucleated Red Blood Cell # 0.00 Thou/mm3 (0.00-0.00); Nucleated Red Blood Cell % 0 /100 WBC (0); Platelet Count 238 Thou/mm3 (140-440); RDW Standard Deviation 63.1 fL (36.4-46.3); Red Blood Count 3.64 Miln/mm3 (4.00-5.20); White Blood Count 11.5 Thou/mm3 (3.6-11.0)
[2025-06-28 22:57] LABS: Anion Gap 7 (7-16); BUN/Creatinine Ratio 19 Ratio (12-20); Blood Urea Nitrogen 13 mg/dL (9-23); Calcium 8.9 mg/dL (8.3-10.6); Carbon Dioxide 24.2 mMol/L (20.0-31.0); Chloride 111 mMol/L (98-107); Creatinine (Component) 0.7 mg/dL (0.6-1.3); Estimated Creatinine Clearance 110.6 mL/min (>60); Glucose 141 mg/dL (74-106); Magnesium 1.7 mg/dL (1.6-2.6); Osmolality,Calculated 285 (275-295); Potassium 3.7 mMol/L (3.4-5.1); Sodium 142 mMol/L (136-145); Thyroid Stimulating Hormone 1.45 uIU/mL (0.55-4.78); eGFR > 60 See Note
[2025-06-28] MEDS: PROCHLORPERAZINE INJ 5 MG/ML VIAL 2 ML 10 MG IV (22:59)
[2025-06-28 23:45] VITALS: BP 148/92; PULSE 82; RESP 18; TEMP 36.6; O2SAT 98
== END 2025-06-28 23:55 | disposition home or self-care (01) ==
PROVIDERS: Emergency Provider Emergency Medicine; PCP Family Medicine
DX: G61.0 Guillain-Barre syndrome (principal)
CPT/HCPCS: 36415; 80048; 83735; 84443; 85025; 96374; 96375; 96376; 99283; J0780; J1171; J1885; J2405; J7030

== ENCOUNTER 2025-08-03 17:15 | Emergency (ER) | payer MEDICAID, SELFPAY ==
[2025-08-03 17:45] VITALS: BP 127/72; PULSE 74; RESP 18; TEMP 36.8; O2SAT 96; BMI 38.7
--- NOTE | 2025-08-03 17:46 | PD.EDHAND ---
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) Time Seen by Provider: 08/03/25 17:45 Arrival date/time: 08/03/25 17:15 49-year-old female with chronic pain syndrome presents to the emergency room today for complaints of extremity pain patient reports no fever nausea vomiting no headache no dizziness no weakness patient reports she takes Ros[place] 10 daily patient requesting Dilaudid Limitations: no limitations Related Data Previous Rx's ?Medication ?Instructions ?Recorded ibuprofen 800 mg tablet 800 mg PO TID PRN pain #30 tabs 06/24/22 ibuprofen 800 mg tablet 800 mg PO Q8H PRN pain #20 tabs 06/18/25 Allergies Allergy/AdvReac Type Severity Reaction Status Date / Time cephalexin Allergy Severe SOB/RASH Verified 08/03/25 17:19 sumatriptan Allergy Severe DIFFICULTY Verified 08/03/25 17:19 BREATHING adhesive tape Allergy Unknown Hives Verified 08/03/25 17:19 Review of Systems Review of Systems Systems Reviewed: All systems reviewed, normal except as documented Constitutional Constitutional: Reports system reviewed and no additional complaints, except as documented, Denies fever(s) and Denies headache(s) Eyes Eyes: Reports system reviewed and no additional complaints, except as documented and Denies blurry vision ENT Ears, Nose, Mouth, and Throat: Reports system reviewed and no additional complaints, except as documented, Denies headache(s), Denies nasal congestion and Denies nasal discharge Cardiovascular Cardiovascular: Reports system reviewed and no additional complaints, except as documented, Denies chest pain and Denies dyspnea Respiratory Respiratory: Reports system reviewed and no additional complaints, except as documented, Denies chest congestion, Denies cough and Denies dyspnea Gastrointestinal Gastrointestinal: Reports system reviewed and no additional complaints, except as documented and Denies abdominal pain Musculoskeletal Musculoskeletal: Reports system reviewed and no additional complaints, except as documented, Reports arthralgias, Denies deformity, Denies numbness, Reports stiffness and Denies tingling Integumentary/Breasts Skin/Breast: Reports system reviewed and no additional complaints, except as documented and Denies rash Neurologic Neurologic: Reports system reviewed and no additional complaints, except as documented, Reports as per HPI, Denies headache(s), Denies numbness and Denies tingling Past Medical History Past Medical History NEUROLOGIC: Positive Migraine CARDIAC: Positive Hypercholesterolemia and Hypertension; Negative Cardiac Disorders or Congestive Heart Failure RESPIRATORY: Positive Asthma and Pneumonia; Negative Chronic Obstructive Pulmonary Disease (COPD) GASTROINTESTINAL: Positive Gall Bladder Disease GENITOURINARY: Negative Renal Disease REPRODUCTIVE: Positive Previous Pregnancies MUSCULOSKELETAL: Positive Arthritis ENT: Positive Deafness (bilateral hearing aids) ENDOCRINE: Positive Diabetes Mellitus Type 2; Negative Diabetes Mellitus Type 1 HEMATOLOGIC: Negative Sickle Cell Disease PSYCHO/SOCIAL: Positive Depression and Anxiety OTHER HISTORY: Positive Blood Transfusions Surgical History SURGICAL: Positive Tonsillectomy, Mastectomy (left), Hysterectomy and Section Social History SMOKING STATUS: Current every day smoker ED Exam General Limitations: Present no limitations General appearance: Present alert and in no apparent distress Head Head exam: Present atraumatic, normocephalic and normal inspection Eye Eye exam: Present normal appearance, PERRL and EOMI; Absent conjunctival injection ENT ENT exam: Present normal exam, normal oropharynx and mucous membranes moist Neck Neck exam: Present normal inspection, full ROM and trachea midline Chest Chest inspection: Present normal inspection and symmetric chest wall rise Respiratory Respiratory exam: Present normal lung sounds bilaterally; Absent respiratory distress Cardiovascular Cardiovascular exam: Present regular rate, normal rhythm and normal heart sounds Abdominal Exam Abdominal exam: Present soft and normal bowel sounds Extremities Exam Extremities exam: Present normal inspection and full ROM Back Exam Back exam: Present normal inspection and full ROM Neurological Exam Neurological exam: Present alert, oriented X3, CN II-XII intact, normal gait and reflexes normal; Absent motor sensory deficit Psychiatric Psychiatric exam: Present normal affect and normal mood Skin Skin exam: Present warm, dry, intact and normal color Course Quality Measures none Orders Category Date Time Status HYDROcodone/APAP 10/325 [Roseland 10/325] Med 08/03/25 17:46 Discontinued 1 tab PO X1 ONE Ketorolac Inj [Toradol Inj] Med 08/03/25 17:46 Discontinued 30 mg IM X1 ONE Vital Signs Vital signs: Vital Signs Temperature 98.3 F 08/03/25 17:45 Pulse Rate 74 08/03/25 17:45 Respiratory Rate 18 08/03/25 17:45 Blood Pressure 127/72 08/03/25 17:45 Pulse Oximetry (%) 96 08/03/25 17:45 Oxygen Delivery Method Room Air 08/03/25 17:45 O2 saturation 96% room air within the limits Extremity Injury MDM Narrative MDM Narrative:: 49-year-old female with chronic pain syndrome presents to the emergency room today for complaints of extremity pain patient reports no fever nausea vomiting no headache no dizziness no weakness patient reports she takes [place] 10 daily patient requesting Dilaudid Clinically patient well-appearing does not appear ill or toxic Patient given 1 dose of Roseland as well as Toradol here Patient instructed to follow-up with pain management doctor and PCP Patient discharged home in no distress to follow-up with primary care doctor in the next 24 to 48 hours and for any worsening symptoms to return to the ER immediately Patient data External records reviewed:: [facility] previous records Clinical information provided by:: patient Social determinants that could affect healthcare access:: none Patient has the following chronic illnesses:: See history How is presenting disease/condition affected by chronic disease/condition?: caused by Evaluation data The following diagnostics were reviewed and interpreted by me:: other (specify) (N/A) Lab and/or radiology exams considered but not ordered:: Considered not ordered Interpretation Summary: N/A Medications / Prescriptions Medications or Prescriptions considered but not ordered:: Given Medication administrations:: Medication Administration History Discontinued Medications Hydrocodone Bitart/Acetaminophen (Hydrocodone/Apap 10/325 Tab) 1 tab PO X1 ONE Stop: 08/03/25 17:47 Last Admin: 08/03/25 18:01 Dose: 1 tab Documented By: OA Ketorolac Tromethamine (Ketorolac Inj 30 Mg/Ml Vial) 30 mg IM X1 ONE Stop: 08/03/25 17:47 Last Admin: 08/03/25 18:00 Dose: 30 mg Documented By: OA Given Consultations Consultation(s) initiated? (list below): No Diagnosis Upper Extremity Injury Differential Diagnosis: other (Chronic pain, acute pain, chronic pain) Most likely diagnosis given after review of the tests above:: Acute on chronic pain syndrome Admission Indicated Admission indicated?: not indicated Admission Request Was there a request for admission?: No Disposition Plan Disposition Plan: Discharge Discharge Attestation Discharge Attestation: The patient and all family members were given an opportunity to ask questions and understood the discharge instructions. Discharge instructions specifically effects, indications for sooner follow up or return to the emergency department, and the expected course of current diagnosis. Patient condition: Stable Discharge Plan Plan Patient Disposition: HOME (Self Care) Discharge Disposition comment: Stable Prescriptions/Referrals Prescriptions/Med Rec: No Action ibuprofen 800 mg tablet 800 mg PO Q8H PRN (Reason: pain) Qty: 20 0RF ibuprofen 800 mg tablet 800 mg PO TID PRN (Reason: pain) Qty: 30 0RF Problem List Clinical Impression: Chronic pain syndrome Patient/Caregiver Discharge Instructions Education Materials: ED Chronic Pain Additional Instructions: Please follow-up your primary care doctor take your Roseland as prescribed at home for worsening symptoms return immediately Print Language: [place] Stand Alone Forms: Priscilla Award Info., Patient Portal Info Letter PA/FREELANCE RECRUITER Supervising Physician PA/FREELANCE RECRUITER Supervising Physician: Dr. coe
[2025-08-03] MEDS: KETOROLAC INJ 30 MG/ML VIAL IM (18:00)
== END 2025-08-03 18:05 | disposition home or self-care (01) ==
PROVIDERS: Emergency Provider Family Medicine
DX: M79.643 Pain in unspecified hand (principal); M79.673 Pain in unspecified foot; G61.0 Guillain-Barre syndrome; G89.4 Chronic pain syndrome
CPT/HCPCS: 96372; 99282; J1885; A9270